=== PATIENT | male | born 1955 | race African-American/Black ===

== ENCOUNTER 2018-03-19 20:10 | Observation (INO) | payer OTHER ==
[2018-03-19 20:55] LABS: Absolute Lymphocytes (CBC) 2.5 K/uL (0.7-4.9); Absolute Monocytes 0.8 K/uL (0.1-1.3); Absolute Neutrophil 2.9 K/uL (1.8-8.0); Basophils % 0.6 % (0-1.3); Hematocrit 46.3 % (39.6-49.0); Lymphocytes % 39.5 % (15.3-44.8); MPV 9.1 fL (7.6-11.3); RBC Red Blood Cell Count 5.36 M/uL (4.33-5.43)
[2018-03-19 20:58] LABS: Protime INR 1.33
[2018-03-19] MEDS ORDERED: FUROSEMIDE 20 MG/ 2ML VIAL ONE (21:01)
[2018-03-19 21:14] LABS: Albumin 3.2 g/dL (3.4-5.0); Bilirubin Direct 0.3 mg/dL (0-0.2); Bilirubin Total 0.6 mg/dL (0.2-1.0); Magnesium 2.3 mg/dL (1.8-2.4); Protein, Total 6.5 g/dL (6.4-8.2); Troponin (Emerg Dept Use Only) 0.04 ng/mL (0.0-0.045)
--- NOTE | 2018-03-19 21:21 | RAD REPORT ---
EXAM DESCRIPTION: Cesilia Single View03/19/2018 8:39 pm CLINICAL HISTORY: Chest pain COMPARISON: 2016 FINDINGS: The left base is mildly hazy which could indicate a small pleural effusion. Lungs appear clear of acute infiltrate. Heart is mildly to moderately enlarged
[2018-03-19 21:26] LABS: Arterial Blood Carboxyhemoglob 1.2 % (0-1.5); Blood Gas Oxyhemoglobin 94.9 % (94-97); Blood O2 Saturation 96.9 % (92-98.5)
--- NOTE | 2018-03-19 21:43 | ER ---
Nurse's Notes [facility] Name: John Paul Chavarria Age: 63 yrs Sex: Male : 1955 Arrival Date: 03/19/2018 Time: 20:11 Bed 30 Private MD: Álvaro Palma H Diagnosis: Unspecified combined systolic (congestive) and diastolic (congestive) heart failure Presentation: 03/19 20:23 Presenting complaint: Patient states: BLE swelling and abdominal bloating for 1 week. aj Seen by Dr Palma on . Transition of care: patient was not received from another setting of care. Onset of symptoms was March 13, 2018. Risk Assessment: Do you want to hurt yourself or someone else? Patient reports no desire to harm self or others. Initial Sepsis Screen: Does the patient meet any 2 criteria? No. Patient's initial sepsis screen is negative. Does the patient have a suspected source of infection? No. Patient's initial sepsis screen is negative. Care prior to arrival: None. 20:23 Method Of Arrival: Ambulatory aj 20:23 Acuity: MACK 3 aj Triage Assessment: 20:26 General: Appears in no apparent distress. comfortable, Behavior is calm, cooperative, aj appropriate for age. Pain: Denies pain. Neuro: Level of Consciousness is awake, alert, obeys commands, Oriented to person, place, time, situation, Appropriate for age. Cardiovascular: Edema is 1+ to left ankle, left foot, right ankle and right foot. Respiratory: Airway is patent Respiratory effort is even, unlabored, Respiratory pattern is regular, symmetrical. Derm: Skin is intact, is healthy with good turgor, Skin is pink, warm \T\ dry. normal. Historical: - Allergies: 20:26 No Known Allergies; aj - Home Meds: 20:26 amlodipine 10 mg oral tab [Active]; furosemide 20 mg Oral tab 1 tab 2 times per day aj [Active]; potassium chloride 20 mEq/15 mL Oral liqd 15 mL once daily [Active]; - PMHx: 20:26 Hypertension; aj - PSHx: 20:26 None; aj - Immunization history:: Adult Immunizations up to date. - Social history:: Smoking status: Patient/guardian denies using tobacco. - Ebola Screening: : Patient negative for fever greater than or equal to 101.5 degrees Fahrenheit, and additional compatible Ebola Virus Disease symptoms Patient denies exposure to infectious person Patient denies travel to an Ebola-affected area in the 21 days before illness onset No symptoms or risks identified at this time. Screenin:55 Abuse screen: Denies threats or abuse. Denies injuries from another. Nutritional mg2 screening: No deficits noted. Tuberculosis screening: No symptoms or risk factors identified. Fall Risk IV access (20 points). Assessment: 20:30 General: Appears in no apparent distress. uncomfortable, well groomed, well developed, kr2 well nourished, Behavior is calm, cooperative, appropriate for age. Pain: Denies pain. Neuro: Level of Consciousness is awake, alert, obeys commands, Oriented to person, place, time, situation, Appropriate for age Hub Inventory Specialist are equal bilaterally Moves all extremities. Gait is steady. Cardiovascular: Patient's skin is warm and dry. Rhythm is sinus tachycardia. Cardiovascular: Edema is 1+ to left ankle and right ankle. Respiratory: Reports shortness of breath on exertion Airway is patent Respiratory effort is even, unlabored, Respiratory pattern is regular, symmetrical, the patient has mild shortness of breath. GI: Abdomen is flat, non-distended. : Denies burning with urination. EENT: Oral mucosa is moist. Derm: Skin is intact, is healthy with good turgor, Skin is pink, warm \T\ dry. Musculoskeletal: Circulation, motion, and sensation intact. 21:00 Reassessment: Patient given urinal. kr2 21:30 Reassessment: Patient appears in no apparent distress at this time. Patient and/or kr2 family updated on plan of care and expected duration. Pain level reassessed. Patient is alert, oriented x 3, equal unlabored respirations, skin warm/dry/pink. Patient denies pain at this time. 22:30 Reassessment: Patient appears in no apparent distress at this time. Patient and/or kr2 family updated on plan of care and expected duration. Pain level reassessed. Patient is alert, oriented x 3, equal unlabored respirations, skin warm/dry/pink. Patient denies pain at this time. 23:09 Reassessment: Patient appears in no apparent distress at this time. Patient and/or kr2 family updated on plan of care and expected duration. Pain level reassessed. Patient is alert, oriented x 3, equal unlabored respirations, skin warm/dry/pink. Patient states feeling better. 03/20 00:02 Reassessment: Patient appears in no apparent distress at this time. Patient and/or kr2 family updated on plan of care and expected duration. Pain level reassessed. Patient is alert, oriented x 3, equal unlabored respirations, skin warm/dry/pink. Patient denies pain at this time. 01:00 Reassessment: Patient appears in no apparent distress at this time. Patient and/or kr2 family updated on plan of care and expected duration. Pain level reassessed. Patient is alert, oriented x 3, equal unlabored respirations, skin warm/dry/pink. Patient denies pain at this time. Patient states feeling better. Vital Signs: 03/19 20:26 BP 176 / 116; Pulse 108; Resp 20; Temp 97.6; Pulse Ox 100% on R/A; Weight 106.59 kg; aj Height 6 ft. 0 in. (182.88 cm); 21:45 BP 166 / 117; Pulse 93; Resp 19; Pulse Ox 100% on R/A; kr2 23:10 BP 150 / 96; Pulse 91; Resp 22; Pulse Ox 96% on R/A; kr2 03/20 00:02 BP 148 / 98; Pulse 86; Resp 18; Pulse Ox 98% on R/A; kr2 01:00 BP 154 / 90; Pulse 88; Resp 18; Pulse Ox 98% on R/A; kr2 03/19 20:26 Body Mass Index 31.87 (106.59 kg, 182.88 cm) aj 03/19 21:45 Provider aware of vital signs kr2 ED Course: 20:11 Patient arrived in ED. al2 20:12 Álvaro Palma DO is Private Physician. al2 20:24 Triage completed. aj 20:26 Arm band placed on left wrist. Patient placed in an exam room. aj 20:28 Andria Rowan FNP-C is [facility]. snw 20:28 Matt Raphael MD is Attending Physician. snw 20:30 Patient has correct armband on for positive identification. Placed in gown. Bed in low kr2 position. Call light in reach. Side rails up X2. school lunch monitor on. Pulse ox on. NIBP on. Door closed. Warm blanket given. Head of bed elevated. 20:36 X-ray completed. Portable x-ray completed in exam room. Patient tolerated procedure sg4 well. 20:39 XRAY Chest (1 view) In Process Unspecified. EDMS 20:40 Rosemarie Longoria, RN is Primary Nurse. kr2 20:54 No provider procedures requiring assistance completed. Inserted saline lock: 20 gauge mg2 in right antecubital area, using aseptic technique. Blood collected. by JONATHAN Houston. 21:42 Lindsey Wing MD is Hospitalizing Provider. snw 03/20 01:09 Patient admitted, IV remains in place. kr2 Administered Medications: 03/19 20:54 Drug: Lasix 20 mg Route: IVP; Site: right antecubital; mg2 21:48 Follow up: Response: No adverse reaction kr2 21:51 Drug: Nitro-Bid Ointment 2 % 1 inches Route: Transdermal; Site: anterior chest wall; kr2 23:18 Follow up: Response: No adverse reaction; Blood pressure is lowered kr2 Outcome: 21:42 Decision to Hospitalize by Provider. snw 03/20 01:09 Admitted to ICU accompanied by nurse, via stretcher, room 6, on monitor, with chart, kr2 Report called to Sonal Condition: stable Instructed on the need for admit, Demonstrated understanding of instructions. 01:10 Patient left the ED. kr2 Signatures: Dispatcher [employer] EDMS Diane Gillis RN RN aj Therrien, Shelly, PIPE MANUFACTURE SUPERVISOR-C PIPE MANUFACTURE SUPERVISOR-Csnw Rosemarie Longoria RN RN kr2 Gail Ny Michele, RN RN mg2 Sarai Saldaña sg4 Corrections: (The following items were deleted from the chart) 03/19 21:56 21:54 BP 166 / 117; Pulse 93bpm; Resp 19bpm; Pulse Ox 100% RA; kr2 kr2 21:57 20:45 BP 166 / 117; Pulse 93bpm; Resp 19bpm; Pulse Ox 100% RA; Provider aware of vital kr2 signs; kr2 23:17 23:10 Pulse 106bpm; Resp 22bpm; Pulse Ox 96% RA; kr2 kr2 23:18 23:10 BP 150 / 96; Pulse 106bpm; Resp 22bpm; Pulse Ox 96% RA; kr2 kr2
--- NOTE | 2018-03-19 21:43 | EDPHYS ---
Physician Documentation [facility] Name: John Paul Chavarria Age: 63 yrs Sex: Male : 1955 Arrival Date: 03/19/2018 Time: 20:11 Bed 30 Private MD: Álvaro Palma H ED Physician Matt Raphael HPI: 03/19 20:51 This 63 yrs old Black Male presents to ER via Ambulatory with complaints of Flank Pain, snw WATER RENTENTION. 20:52 The patient has shortness of breath with light activity. Onset: The symptoms/episode snw began/occurred 1 week(s) ago, and became persistent. Duration: The symptoms are continuous, and are steadily getting worse. Associated signs and symptoms: Pertinent positives: non-productive cough. Severity of symptoms: At their worst the symptoms were moderate in the emergency department the symptoms are unchanged. The patient has not experienced similar symptoms in the past. The patient has been recently seen by a physician: Dr. Palma 5 day(s) ago, with similar presenting complaints, was given lab req and orders for EKG, echo. Historical: - Allergies: 20:26 No Known Allergies; aj - Home Meds: 20:26 amlodipine 10 mg oral tab [Active]; furosemide 20 mg Oral tab 1 tab 2 times per day aj [Active]; potassium chloride 20 mEq/15 mL Oral liqd 15 mL once daily [Active]; - PMHx: 20:26 Hypertension; aj - PSHx: 20:26 None; aj - Immunization history:: Adult Immunizations up to date. - Social history:: Smoking status: Patient/guardian denies using tobacco. - Ebola Screening: : Patient negative for fever greater than or equal to 101.5 degrees Fahrenheit, and additional compatible Ebola Virus Disease symptoms Patient denies exposure to infectious person Patient denies travel to an Ebola-affected area in the 21 days before illness onset No symptoms or risks identified at this time. ROS: 20:51 Constitutional: Negative for fever, chills, and weight loss, Eyes: Negative for injury, snw pain, redness, and discharge, ENT: Negative for injury, pain, and discharge, Neck: Negative for injury, pain, and swelling. 20:51 Back: Negative for injury and pain, : Negative for injury, bleeding, discharge, and swelling, MS/Extremity: Negative for injury and deformity, Skin: Negative for injury, rash, and discoloration, Neuro: Negative for headache, weakness, numbness, tingling, and seizure, Psych: Negative for depression, anxiety, suicide ideation, homicidal ideation, and hallucinations. 20:51 Cardiovascular: Positive for edema, orthopnea, paroxysmal nocturnal dyspnea. 20:51 Respiratory: Positive for cough, shortness of breath. 20:51 Abdomen/GI: Positive for abdominal distension. Exam: 20:46 Constitutional: This is a well developed, well nourished patient who is awake, alert, snw and in no acute distress. Head/Face: Normocephalic, atraumatic. Eyes: Pupils equal round and reactive to light, extra-ocular motions intact. Lids and lashes normal. Conjunctiva and sclera are non-icteric and not injected. Cornea within normal limits. Periorbital areas with no swelling, redness, or edema. ENT: Nares patent. No nasal discharge, no septal abnormalities noted. Tympanic membranes are normal and external auditory canals are clear. Oropharynx with no redness, swelling, or masses, exudates, or evidence of obstruction, uvula midline. Mucous membranes moist. Neck: Trachea midline, no thyromegaly or masses palpated, and no cervical lymphadenopathy. Supple, full range of motion without nuchal rigidity, or vertebral point tenderness. No Meningismus. Chest/axilla: Normal chest wall appearance and motion. Nontender with no deformity. No lesions are appreciated. Back: No spinal tenderness. No costovertebral tenderness. Full range of motion. Neuro: Awake and alert, GCS 15, oriented to person, place, time, and situation. Cranial nerves II-XII grossly intact. Motor strength 5/5 in all extremities. Sensory grossly intact. Cerebellar exam normal. Normal gait. Psych: Awake, alert, with orientation to person, place and time. Behavior, mood, and affect are within normal limits. 20:46 Cardiovascular: Rate: tachycardic, Rhythm: regular, Heart sounds: normal, Edema: 3+ edema to level of waist, left ankle, left foot, right ankle and right foot. 20:46 Respiratory: mild respiratory distress is noted, Respirations: labored breathing, shallow respirations, Breath sounds: + upper airway congestion. cough. 20:46 Abdomen/GI: Inspection: distension, that is moderate, Bowel sounds: normal, in all quadrants, Palpation: mild abdominal tenderness, in all quadrants. Vital Signs: 20:26 BP 176 / 116; Pulse 108; Resp 20; Temp 97.6; Pulse Ox 100% on R/A; Weight 106.59 kg; aj Height 6 ft. 0 in. (182.88 cm); 21:45 BP 166 / 117; Pulse 93; Resp 19; Pulse Ox 100% on R/A; kr2 23:10 BP 150 / 96; Pulse 91; Resp 22; Pulse Ox 96% on R/A; kr2 03/20 00:02 BP 148 / 98; Pulse 86; Resp 18; Pulse Ox 98% on R/A; kr2 01:00 BP 154 / 90; Pulse 88; Resp 18; Pulse Ox 98% on R/A; kr2 03/19 20:26 Body Mass Index 31.87 (106.59 kg, 182.88 cm) 03/19 21:45 Provider aware of vital signs kr2 MDM: 20:31 Patient medically screened. snw 21:41 Data reviewed: vital signs, nurses notes, lab test result(s), EKG, radiologic studies. snw Counseling: I had a detailed discussion with the patient and/or guardian regarding: the historical points, exam findings, and any diagnostic results supporting the discharge/admit diagnosis, the presence of at least one elevated blood pressure reading (>120/80) during this emergency department visit, lab results, radiology results, the need for further work-up and treatment in the hospital. Physician consultation: Lindsey Wing MD was called at 21:42, was contacted at 21:42, regarding admission, to the telemetry unit. 03/19 20:30 Order name: Basic Metabolic Panel; Complete Time: 21:30 snw 03/19 20:30 Order name: CBC with Diff; Complete Time: 21:03 snw 03/19 20:30 Order name: LFT's; Complete Time: 21:30 snw 03/19 20:30 Order name: Magnesium; Complete Time: 21:30 snw 03/19 20:30 Order name: NT PRO-BNP; Complete Time: 21:30 snw 03/19 20:30 Order name: PT-INR; Complete Time: 21:10 snw 03/19 20:30 Order name: Troponin (emerg Dept Use Only); Complete Time: 21:30 snw 03/19 20:30 Order name: XRAY Chest (1 view); Complete Time: 21:30 snw 03/19 20:30 Order name: EKG; Complete Time: 20:31 snw 03/19 20:30 Order name: Cardiac monitoring; Complete Time: 20:54 snw 03/19 20:30 Order name: EKG - Nurse/Tech; Complete Time: 20:54 snw 03/19 20:34 Order name: ABG; Complete Time: 21:30 snw 03/19 20:30 Order name: IV Saline Lock; Complete Time: 20:54 snw 03/19 20:30 Order name: Labs collected and sent; Complete Time: 20:54 snw 03/19 20:30 Order name: O2 Per Protocol; Complete Time: 20:54 snw 03/19 20:30 Order name: O2 Sat Monitoring; Complete Time: 20:54 snw Administered Medications: 20:54 Drug: Lasix 20 mg Route: IVP; Site: right antecubital; mg2 21:48 Follow up: Response: No adverse reaction kr2 21:51 Drug: Nitro-Bid Ointment 2 % 1 inches Route: Transdermal; Site: anterior chest wall; kr2 23:18 Follow up: Response: No adverse reaction; Blood pressure is lowered kr2 Disposition: 03/20 02:12 Co-signature as Attending Physician, Matt Raphael MD. pk Disposition: 03/19/18 21:42 Hospitalization ordered by Lindsey Wing for Observation. Preliminary diagnosis is Unspecified combined systolic (congestive) and diastolic (congestive) heart failure. - Bed requested for Intensive Care Unit. - Status is Observation. kr2 - Condition is Stable. - Problem is new. - Symptoms are unchanged. UTI on Admission? No Signatures: Dispatcher [employer] EDAlissa Arellano RN RN kl Myers, Amanda, RN RN aj Lam, Pin, MD MD pkl Andria Rowan, OPENER TENDER-C OPENER TENDER-Csnw Rosemarie Longoria RN RN kr2 Selvin Zacarias RN RN mg2 Corrections: (The following items were deleted from the chart) 03/19 23:29 21:42 Hospitalization Ordered by Lindsey Wing MD for Observation. Preliminary kl diagnosis is Unspecified combined systolic (congestive) and diastolic (congestive) heart failure. Bed requested for Telemetry/MedSurg (observation). Status is Observation. Condition is Stable. Problem is new. Symptoms are unchanged. UTI on Admission? No. snw 03/20 01:10 03/19 23:29 03/19/2018 21:42 Hospitalization Ordered by Lindsey Wing MD for kr2 Observation. Preliminary diagnosis is Unspecified combined systolic (congestive) and diastolic (congestive) heart failure. Bed requested for Intensive Care Unit. Status is Observation. Condition is Stable. Problem is new. Symptoms are unchanged. UTI on Admission? No. kl
[2018-03-19] MEDS ORDERED: NITROGLYCERIN 1 GM PKT TD ONE (21:59)
--- NOTE | 2018-03-19 23:20 | P.HP ---
Certification for Inpatient Patient admitted to: Observation With expected LOS: <2 Midnights Practitioner: I am a practitioner with admitting privileges, knowledge of patient current condition, hospital course, and medical plan of care. Services: Services provided to patient in accordance with Admission requirements found in Title 42 Section 412.3 of the Code of Federal Regulations Patient History Date of Service: 03/19/18 Reason for admission: CHF exacerbation History of Present Illness: Mr Chavarria is a 63 years old male with history of HTN. He start about 1 week ago with progressive SOB and bilateral lower extremity swelling. He is also complaining of abdominal bloating. He denied chest pain. about 4 days ago, went to see his PCP, he was started on Lasix and adjusted BP medication. He was also scheduled to have an ECHO as outpatient. However, the patient today was feeling worse and came to ED for evaluation. At arrival he was dyspneic, but O2 sat was 100% on RA. BP elevated 177/6/116, tachycardic 108 bpm. Lab work remarkable for normal WBC count, elevated creatinine 1.5 and ProBNP, CXR consistent with venous congestion, and enlarged heart. EKG SR with St depression in lateral leads, possible overload. Home medications list reviewed: Yes - Past Medical/Surgical History -: HTN Past Surgical History: Reviewed- Non-Contributory - Family History Family History: Reviewed- Non-Contributory - Social History Smoking Status: Never smoker Alcohol use: No CD- Drugs: No Place of Residence: Home Review of Systems 10-point ROS is otherwise unremarkable Physical Examination - Physical Exam General: Alert, In no apparent distress HEENT: Atraumatic, PERRLA, Mucous membr. moist/pink, EOMI, Sclerae nonicteric Neck: Supple, 2+ carotid pulse no bruit, No LAD, Without JVD or thyroid abnormality Respiratory: Normal air movement, Crackles/rales (scattered bibasilar rales) Cardiovascular: Regular rate/rhythm, Normal S1 S2 Gastrointestinal: Normal bowel sounds, No tenderness Musculoskeletal: No tenderness, Swelling (bilateral LE 1+) Integumentary: No rashes Neurological: Normal gait, Normal speech, Normal strength at 5/5 x4 extr, Normal tone, Normal affect Lymphatics: No axilla or inguinal lymphadenopathy - Studies Laboratory Data (last 24 hrs) 03/19/18 20:45: PT 15.7 H, INR 1.33 03/19/18 20:45: WBC 6.4, Hgb 14.8, Hct 46.3, Plt Count 137 L 03/19/18 20:45: Sodium 143, Potassium 4.0, BUN 16, Creatinine 1.56 H, Glucose 104, Magnesium 2.3, Total Bilirubin 0.6, AST 32, ALT 57, Alkaline Phosphatase 134 H Assessment and Plan - Problems (Diagnosis) (1) Congestive heart failure Current Visit: Yes Status: Acute Qualifiers: Heart failure type: unspecified Heart failure chronicity: acute Qualified Code(s): I50.9 - Heart failure, unspecified (2) HTN (hypertension) Current Visit: Yes Status: Acute Qualifiers: Hypertension type: essential hypertension Qualified Code(s): I10 - Essential (primary) hypertension (3) Lower extremity edema Current Visit: Yes Status: Acute - Plan will admit the patient due to CHF exacerbation. Unknoun EF. Will order ECHO, IV lasix, consult cardiology team. - Advance Directives Does patient have a Living Will: No Does patient have a Durable POA for Healthcare: No - Code Status/Comfort Care Code Status Assessed: Yes Code Status: Full Code
[2018-03-20] MEDS ORDERED: ONDANSETRON 4 MG/2 ML VIAL IV PRN (00:32)
[2018-03-20] MEDS ORDERED: ACETAMINOPHEN 500 MG TAB PO PRN (00:32)
[2018-03-20 05:07] LABS: Absolute Lymphocytes (CBC) 2.2 K/uL (0.7-4.9); Absolute Monocytes 0.7 K/uL (0.1-1.3); Absolute Neutrophil 3.2 K/uL (1.8-8.0); Basophils % 0.6 % (0-1.3); Eosinophils % 1.9 % (0-4.4); Hematocrit 45.1 % (39.6-49.0); Lymphocytes % 34.7 % (15.3-44.8); MPV 9.7 fL (7.6-11.3); Monocytes % 11.8 % (3.3-12.3); RBC Red Blood Cell Count 5.23 M/uL (4.33-5.43)
[2018-03-20] MEDS ORDERED: FUROSEMIDE 40 MG/4 ML VIAL IV SCH (09:00)
[2018-03-20] MEDS ORDERED: ENOXAPARIN 40 MG/0.4 ML SQ SCH (09:00)
[2018-03-20] MEDS ORDERED: AMLODIPINE 10 MG TAB PO SCH (10:00)
--- NOTE | 2018-03-20 10:03 | EKG ---
Test Date: 2018-03-19 Test Time: 20:53:06 Sheet Rock Finisher: ANDRA MEASUREMENT RESULTS: Intervals: Rate: 96 SC: 190 QRSD: 94 QT: 358 QTc: 452 [place]: P: 65 SC: 190 QRS: 20 T: 180 INTERPRETIVE STATEMENTS: Normal sinus rhythm Possible Left atrial enlargement Nonspecific T wave abnormality Abnormal ECG Compared to ECG 08/05/2015 08:52:26 T-wave abnormality now present Left ventricular hypertrophy no longer present Electronically Signed On 03-20-18 09:54:32 HANDLE BAR ASSEMBLER by Jesus Alberto Rosenbaum
[2018-03-20] MEDS: LOSARTAN/HCTZ 50-12.5 PO SCH ×2 (11:01→13:12)
--- NOTE | 2018-03-20 14:08 | P.DS ---
Admission Date: 03/19/18 Discharge Date: 03/20/18 Disposition: ROUTINE DISCHARGE Discharge Condition: GOOD Reason for Admission: CHF exacerbation Consultations: Cardiology Brief History of Present Illness: Mr Chavarria is a 63 years old male with history of HTN. He start about 1 week ago with progressive SOB and bilateral lower extremity swelling. He is also complaining of abdominal bloating. He denied chest pain. about 4 days ago, went to see his PCP, he was started on Lasix and adjusted BP medication. He was also scheduled to have an ECHO as outpatient. However, the patient today was feeling worse and came to ED for evaluation. At arrival he was dyspneic, but O2 sat was 100% on RA. BP elevated 177/116, tachycardic 108 bpm. Lab work remarkable for normal WBC count, elevated creatinine 1.5 and ProBNP, CXR consistent with venous congestion, and enlarged heart. EKG SR with St depression in lateral leads, possible overload. Hospital Course: Overall during the hospital stay patient remained stable Patient was initially admitted to the hospital for volume overload most likely secondary to CHF exacerbation. Patient was given IV Lasix here in the hospital had adequate diuresis and was feeling much better. Patient's blood pressure stabilized after addition of heights are an IV Lasix. Patient was able to breathe properly as well after the Lasix. Patient was seen here by cardiology who recommended the patient be sent home on hives are. Patient can have outpatient echocardiogram done per cardiology. Patient then was discharged home under stable condition when he was feeling better. Patient agreed with follow up with cardiology in about 1-2 days and thus was discharged home under stable condition. Vital Signs/Physical Exam: Temp Pulse Resp BP Pulse Ox 98.7 F 101 H 18 163/93 H 98 03/20/18 12:00 03/20/18 13:12 03/20/18 13:00 03/20/18 13:12 03/20/18 13:00 General: Alert, In no apparent distress HEENT: Atraumatic, PERRLA, EOMI Neck: Supple, JVD not distended Respiratory: Clear to auscultation bilaterally, Normal air movement Cardiovascular: Regular rate/rhythm, Normal S1 S2 Gastrointestinal: Normal bowel sounds, No tenderness Musculoskeletal: No tenderness Integumentary: No rashes Neurological: Normal speech, Normal tone, Normal affect Lymphatics: No axilla or inguinal lymphadenopathy Laboratory Data at Discharge: WBC 6.4 K/uL (4.3-10.9) 03/20/18 04:34 Hgb 14.6 g/dL (13.6-17.9) 03/20/18 04:34 Hct 45.1 % (39.6-49.0) 03/20/18 04:34 Plt Count 125 K/uL (152-406) L 03/20/18 04:34 PT 15.7 SECONDS (9.5-12.5) H 03/19/18 20:45 INR 1.33 03/19/18 20:45 Sodium 142 mmol/L (136-145) 03/20/18 04:34 Potassium 4.0 mmol/L (3.5-5.1) 03/20/18 04:34 BUN 14 mg/dL (7-18) 03/20/18 04:34 Creatinine 1.38 mg/dL (0.55-1.3) H 03/20/18 04:34 Glucose 87 mg/dL (74-106) 03/20/18 04:34 Magnesium 2.3 mg/dL (1.8-2.4) 03/19/18 20:45 Total Bilirubin 0.6 mg/dL (0.2-1.0) 03/19/18 20:45 AST 32 U/L (15-37) 03/19/18 20:45 ALT 57 U/L (12-78) 03/19/18 20:45 Alkaline Phosphatase 134 U/L (45-117) H 03/19/18 20:45 Home Medications: Amlodipine [Norvasc*] 10 mg PO DAILY 03/20/18 Furosemide [Lasix*] 20 mg PO BIDL 03/20/18 Losartan/Hydrochlorothiazide [Hyzaar 50-12.5 Tablet] 1 each PO DAILY #30 tablet 03/20/18 Potassium Chloride 20 meq PO DAILY 03/20/18 New Medications: Losartan/Hydrochlorothiazide [Hyzaar 50-12.5 Tablet] 1 each PO DAILY #30 tablet Patient Discharge Instructions: Please f.u with PCP and Robi in 1 to 2 week post discharge. New medication. Hyzaar 1 tab daily. Continue to take. Amlodipine 10mg daily. Lasix 20mg BID Diet: Regular Activity: Ad clint Followup: Jesus Alberto Rosenbaum MD [ACTIVE - CAN ADMIT] - 1 Week
[2018-03-21] MEDS ORDERED: AMLODIPINE 10 MG TAB PO SCH (09:00)
--- NOTE | 2018-03-21 20:51 | CON ---
Date of Consultation: 03/20/2018 Reason For Consultation: Congestive heart failure. History Of Present Illness: Mr. Chavarria is 63, has a history of hypertension, came in with flank pain , was noted to be in CHF by x-ray with small pleural effusion and cardiomegaly. His BNP was 7280. H is creatinine is 1.56. Otherwise, his laboratory evaluation were negative. His EKG was nonspecific. He denied any chest pain, nausea, vomiting, diaphoresis. Has denied any PND, but has had orthopnea and pedal edema. Denied any syncope or palpitation. Past Medical History: Includes hypertension. Allergies: NONE. Review of Systems: Negative. Social History: Negative for tobacco, drug, or alcohol. Family History: Positive for hypertension and coronary artery disease. Medications At Home: Include Norvasc, Lasix, and potassium. Physical Examination: General: Mr. Chavarria appears his stated age. He was not in acute distress. He has improved dramatic ally after IV Lasix. Remains hypertensive in sinus rhythm. HEENT: Negative. Neck: Supple without any bruit, lymphadenopathy, or JVD. Chest: Revealed rales both bases. Cardiac: Revealed a regular rhythm and rate with an S4 gallop and a aortic sclerosis murmur but no r ubs. Abdomen: Benign. Extremities: Revealed no clubbing or cyanosis. He had trace edema. Diagnostic Data: As stated earlier. Impression And Plan: 1.Acute on chronic diastolic congestive heart failure. The patient needs to be diuresed gently. I think we need his blood pressure better controlled. I think he needs to continue his Norvasc 10 mg d aily, but I would like to add Hyzaar to his regimen. The patient also needs to have an outpatient Le irma to make sure he does not have coronary artery disease causing his symptoms. 2.Renal insufficiency stage 3. We will follow his creatinine, especially after diuresis. NB/MODL Voice ID: [id number] Report ID: [id number]
== END 2018-03-20 13:10 | disposition home or self-care (01) ==
LOC: ER 20:10 → ERHOLD 21:42 → 3RD-ICU 03-20 00:39
PROVIDERS: ADMIT Internal Medicine; ATTEND Internal Medicine
DX: I11.0 Hypertensive heart disease with heart failure (principal); I50.33 Acute on chronic diastolic (congestive) heart failure
CPT/HCPCS: 36415; 71045; 80048; 80076; 82805; 83735; 83880; 84484; 85025; 85610; 93005; 96374; 99285; G0378; J1650; J1940

== ENCOUNTER 2019-05-17 22:34 | Observation (INO) | payer OTHER ==
[2019-05-17 23:43] LABS: Absolute Lymphocytes (CBC) 1.6 K/uL (0.7-4.9); Basophils % 0.6 % (0-1.3); Hematocrit 45.1 % (39.6-49.0); Lymphocytes % 26.6 % (15.3-44.8); MPV 10.3 fL (7.6-11.3); RBC Red Blood Cell Count 5.26 M/uL (4.33-5.43)
[2019-05-17 23:45] LABS: Protime INR 1.25
--- NOTE | 2019-05-18 00:17 | ER ---
Nurse's Notes [facility] Name: John Paul Chavarria Age: 64 yrs Sex: Male : 1955 Arrival Date: 05/17/2019 Time: 22:38 Bed 4 Private MD: Diagnosis: Unspecified combined systolic (congestive) and diastolic (congestive) heart failure;Cardiomegaly;Orthopnea Presentation: 05/17 22:41 Presenting complaint: Patient states: Pt from [facility] and supposed to be a direct admit ca1 but pt refused to be transferred via ambulance. Pt c/o of SOB at rest and swelling on lower extremities for months but worst in the past few days. Transition of care: [facility] ER. Onset of symptoms was May 17, 2019. Risk Assessment: Do you want to hurt yourself or someone else? Patient reports no desire to harm self or others. Initial Sepsis Screen: Does the patient meet any 2 criteria? No. Patient's initial sepsis screen is negative. Does the patient have a suspected source of infection? No. Patient's initial sepsis screen is negative. Care prior to arrival: Lasix. 22:41 Method Of Arrival: Wheelchair ca1 22:41 Acuity: MACK 3 ca1 Historical: - Allergies: 22:48 No Known Allergies; ca1 - Home Meds: 22:48 None [Active]; ca1 - PMHx: 22:48 Hypertension; Arthritis; Kidney Disease; CHF; ca1 - PSHx: 22:48 None; ca1 - Immunization history:: Adult Immunizations up to date, Pneumococcal vaccine is not up to date, Flu vaccine is up to date. - Coronavirus screen:: The patient has NOT traveled to [place] in the past 14 days. The patient has NOT had contact with known/suspected case of Coronavirus?. - Social history:: Smoking status: Patient denies any tobacco usage or history of. - Ebola Screening: : Patient negative for fever greater than or equal to 101.5 degrees Fahrenheit, and additional compatible Ebola Virus Disease symptoms Patient denies exposure to infectious person Patient denies travel to an Ebola-affected area in the 21 days before illness onset No symptoms or risks identified at this time. Screenin:19 Abuse screen: Denies threats or abuse. Denies injuries from another. Nutritional lp1 screening: No deficits noted. Tuberculosis screening: No symptoms or risk factors identified. Fall Risk None identified. Assessment: 23:17 General: Appears in no apparent distress. Behavior is anxious, crying. Pain: Complains lp1 of pain in chest Also complains of shortness of breath. Neuro: Level of Consciousness is awake, alert, obeys commands, Oriented to person, place, time, situation. Cardiovascular: Patient's skin is warm and dry. Edema is 1+ to left ankle and right ankle Rhythm is sinus rhythm with unifocal PVCs. Respiratory: Reports shortness of breath at rest Airway is patent Respiratory effort is even, unlabored, Respiratory pattern is regular, Breath sounds are diminished in left posterior lower lobe and right posterior lower lobe Onset: The symptoms/episode began/occurred gradually, the patient has mild shortness of breath. GI: Abdomen is non-distended. : No signs and/or symptoms were reported regarding the genitourinary system. EENT: No signs and/or symptoms were reported regarding the EENT system. Derm: Skin is intact, Skin is dry, Skin is normal. Musculoskeletal: No deficits noted. 05/18 00:00 Reassessment: Patient appears in no apparent distress at this time. Patient and/or lp1 family updated on plan of care and expected duration. Pain level reassessed. Patient aware of pending admission. 00:45 Reassessment: Hospitalist at bedside to discuss plan of care with patient. lp1 01:56 Reassessment: Patient appears in no apparent distress at this time. Patient is alert, lp1 oriented x 3, equal unlabored respirations, skin warm/dry/pink. Vital Signs: 05/17 22:48 BP 153 / 87; Pulse 94; Resp 19 S; Temp 98.8(O); Pulse Ox 100% on R/A; Weight 99.79 kg ca1 (R); Height 6 ft. (182.88 cm) (R); Pain 0/10; 23:19 BP 169 / 106; Pulse 97; Resp 15; Pulse Ox 100% on R/A; lp1 23:45 BP 152 / 78; Pulse 87; Resp 18; Pulse Ox 99% on R/A; lp1 05/18 00:00 BP 153 / 81; Pulse 91; Resp 13; Pulse Ox 100% on R/A; lp1 01:00 BP 153 / 80; Pulse 82; Resp 17; Pulse Ox 100% on R/A; lp1 01:57 BP 154 / 86; Pulse 89; Resp 19; Pulse Ox 100% on R/A; lp1 05/17 22:48 Body Mass Index 29.84 (99.79 kg, 182.88 cm) ca1 ED Course: 02 22:38 Patient arrived in ED. jg7 22:46 Triage completed. ca1 22:48 Arm band placed on right wrist. ca1 22:51 Robert Mauro MD is Attending Physician. endy 22:56 Kulwant Carmen, RN is Primary Nurse. rv 23:17 Aida Moore, RN is Primary Nurse. lp1 23:19 Patient has correct armband on for positive identification. Placed in gown. Bed in low lp1 position. potline monitor on. Pulse ox on. NIBP on. 23:33 Initial lab(s) drawn, by me, sent to lab. Inserted saline lock: 20 gauge in right rv antecubital area, using aseptic technique. Blood collected. 05/18 00:14 Issa Lopez is Hospitalizing Provider. endy 00:15 No provider procedures requiring assistance completed. Patient admitted, IV remains in lp1 place. Administered Medications: No medications were administered Output: 00:12 Urine: 450ml (Voided); Total: 450ml. lp1 02:13 Urine: 200ml (Voided); Total: 650ml. lp1 Outcome: 00:15 Decision to Hospitalize by Provider. endy 00:15 Condition: stable lp1 00:15 Instructed on the need for admit. 01:55 Admitted to [facility] via wheelchair, room 405, with chart, Report called to JONATHAN Park lp1 02:13 Patient left the ED. lp1 Signatures: Robert Mauro MD MD cha Pena, Laura, JONATHAN RN lp1 Kulwant Carmen RN RN rv Roxana Schultz RN RN ca1 Joanie Melara jg7 Corrections: (The following items were deleted from the chart) 05/17 23:02 22:41 Transition of care: patient was not received from another setting of care. ca1 ca1 23:19 23:17 Respiratory: Airway is patent Respiratory effort is even, unlabored, Respiratory lp1 pattern is regular, Breath sounds are diminished in left posterior lower lobe and right posterior lower lobe lp1 23:19 23:17 Respiratory: Airway is patent Respiratory effort is even, unlabored, Respiratory lp1 pattern is regular, Breath sounds are diminished in left posterior lower lobe and right posterior lower lobe Onset: The symptoms/episode began/occurred gradually, the patient has mild shortness of breath lp1
--- NOTE | 2019-05-18 00:18 | EDPHYS ---
Physician Documentation [facility] Name: John Paul Chavarria Age: 64 yrs Sex: Male : 1955 Arrival Date: 05/17/2019 Time: 22:38 Bed 4 Private MD: ED Physician Robert Mauro HPI: 05/18 00:10 This 64 yrs old Black Male presents to ER via Wheelchair with complaints of Breathing endy Difficulty, Feet Swelling. 00:10 The patient has shortness of breath at rest, with light activity. Onset: The endy symptoms/episode began/occurred 1 day(s) ago. Duration: The symptoms are continuous, and are steadily getting worse. The patient's shortness of breath is aggravated by light activity, supine position. Associated signs and symptoms: Pertinent positives: non-productive cough, dizziness. Severity of symptoms: At their worst the symptoms were mild moderate in the emergency department the symptoms have resolved. The patient has experienced similar episodes in the past, a few times. Historical: - Allergies: 05/17 22:48 No Known Allergies; ca1 - Home Meds: 22:48 None [Active]; ca1 - PMHx: 22:48 Hypertension; Arthritis; Kidney Disease; CHF; ca1 - PSHx: 22:48 None; ca1 - Immunization history:: Adult Immunizations up to date, Pneumococcal vaccine is not up to date, Flu vaccine is up to date. - Coronavirus screen:: The patient has NOT traveled to [place] in the past 14 days. The patient has NOT had contact with known/suspected case of Coronavirus?. - Social history:: Smoking status: Patient denies any tobacco usage or history of. - Ebola Screening: : Patient negative for fever greater than or equal to 101.5 degrees Fahrenheit, and additional compatible Ebola Virus Disease symptoms Patient denies exposure to infectious person Patient denies travel to an Ebola-affected area in the 21 days before illness onset No symptoms or risks identified at this time. ROS: 05/18 00:11 Constitutional: Negative for fever, chills, and weight loss, Eyes: Negative for injury, endy pain, redness, and discharge, ENT: Negative for injury, pain, and discharge, Neck: Negative for injury, pain, and swelling, Cardiovascular: Negative for chest pain, palpitations, and edema, Abdomen/GI: Negative for abdominal pain, nausea, vomiting, diarrhea, and constipation, Back: Negative for injury and pain, : Negative for injury, bleeding, discharge, and swelling, Skin: Negative for injury, rash, and discoloration, Neuro: Negative for headache, weakness, numbness, tingling, and seizure, Psych: Negative for depression, anxiety, suicide ideation, homicidal ideation, and hallucinations, Allergy/Immunology: Negative for hives, rash, and allergies, Endocrine: Negative for neck swelling, polydipsia, polyuria, polyphagia, and marked weight changes, Hematologic/Lymphatic: Negative for swollen nodes, abnormal bleeding, and unusual bruising. Respiratory: Positive for dyspnea on exertion, orthopnea, shortness of breath, Negative for hemoptysis, wheezing. MS/extremity: Positive for swelling, of the right leg and left leg. Exam: 00:12 Constitutional: This is a well developed, well nourished patient who is awake, alert, endy and in no acute distress. Head/Face: Normocephalic, atraumatic. Eyes: Pupils equal round and reactive to light, extra-ocular motions intact. Lids and lashes normal. Conjunctiva and sclera are non-icteric and not injected. Cornea within normal limits. Periorbital areas with no swelling, redness, or edema. ENT: Nares patent. No nasal discharge, no septal abnormalities noted. Tympanic membranes are normal and external auditory canals are clear. Oropharynx with no redness, swelling, or masses, exudates, or evidence of obstruction, uvula midline. Mucous membranes moist. Neck: Trachea midline, no thyromegaly or masses palpated, and no cervical lymphadenopathy. Supple, full range of motion without nuchal rigidity, or vertebral point tenderness. No Meningismus. Chest/axilla: Normal chest wall appearance and motion. Nontender with no deformity. No lesions are appreciated. Respiratory: Lungs have equal breath sounds bilaterally, clear to auscultation and percussion. No rales, rhonchi or wheezes noted. No increased work of breathing, no retractions or nasal flaring. Abdomen/GI: Soft, non-tender, with normal bowel sounds. No distension or tympany. No guarding or rebound. No evidence of tenderness throughout. Back: No spinal tenderness. No costovertebral tenderness. Full range of motion. Male : Normal genitalia with no discharge or lesions. Skin: Warm, dry with normal turgor. Normal color with no rashes, no lesions, and no evidence of cellulitis. Neuro: Awake and alert, GCS 15, oriented to person, place, time, and situation. Cranial nerves II-XII grossly intact. Motor strength 5/5 in all extremities. Sensory grossly intact. Cerebellar exam normal. Normal gait. Psych: Awake, alert, with orientation to person, place and time. Behavior, mood, and affect are within normal limits. 00:12 Cardiovascular: Rate: tachycardic, Rhythm: regular, Pulses: Pulses are 3+ in bilateral radial, brachial, femoral, popliteal, posterior tibial and and dorsalis pedis arteries.. Heart sounds: normal, Edema: 2+ edema to level of left midcalf, left ankle, left foot, right midcalf, right ankle and right foot, JVD: is noted bilaterally, to 1 cm. Vital Signs: 05/17 22:48 BP 153 / 87; Pulse 94; Resp 19 S; Temp 98.8(O); Pulse Ox 100% on R/A; Weight 99.79 kg ca1 (R); Height 6 ft. (182.88 cm) (R); Pain 0/10; 23:19 BP 169 / 106; Pulse 97; Resp 15; Pulse Ox 100% on R/A; lp1 23:45 BP 152 / 78; Pulse 87; Resp 18; Pulse Ox 99% on R/A; lp1 05/18 00:00 BP 153 / 81; Pulse 91; Resp 13; Pulse Ox 100% on R/A; lp1 01:00 BP 153 / 80; Pulse 82; Resp 17; Pulse Ox 100% on R/A; lp1 01:57 BP 154 / 86; Pulse 89; Resp 19; Pulse Ox 100% on R/A; lp1 05/17 22:48 Body Mass Index 29.84 (99.79 kg, 182.88 cm) ca1 MDM: 05/17 22:51 Patient medically screened. endy 05/17 23:16 Order name: Basic Metabolic Panel lp1 05/17 23:16 Order name: CBC with Diff lp1 05/17 23:16 Order name: LFT's lp1 05/17 23:16 Order name: Magnesium lp1 05/17 23:16 Order name: NT PRO-BNP lp1 05/17 23:16 Order name: PT-INR lp1 05/17 23:16 Order name: Troponin (emerg Dept Use Only) lp1 05/17 23:46 Order name: CBC with Automated Diff; Complete Time: 00:12 EDMS 05/17 23:46 Order name: Protime (+INR); Complete Time: 00:12 EDMS 05/18 00:21 Order name: Basic Metabolic Panel EDMS 05/18 00:22 Order name: Liver (Hepatic) Function EDMS 05/18 00:22 Order name: Troponin (Emerg Dept Use Only) EDMS 05/18 00:22 Order name: NT PRO-BNP EDMS 05/18 00:22 Order name: Magnesium EDMN 05/17 23:16 Order name: XRAY Chest (1 view) lp1 05/17 23:16 Order name: EKG; Complete Time: 23:18 lp1 05/17 23:16 Order name: Cardiac monitoring; Complete Time: 23:16 [facility] 05/17 23:16 Order name: EKG - Nurse/Tech; Complete Time: 23:16 lp1 05/17 23:16 Order name: IV Saline Lock; Complete Time: 23:44 lp1 05/17 23:16 Order name: Labs collected and sent; Complete Time: 23:44 lp1 05/17 23:16 Order name: O2 Per Protocol; Complete Time: 23:16 lp1 05/17 23:16 Order name: O2 Sat Monitoring; Complete Time: 23:16 lp1 Administered Medications: No medications were administered Disposition: 05/18/19 00:15 Hospitalization ordered by Issa Lopez for Inpatient Admission. Preliminary diagnosis are Unspecified combined systolic (congestive) and diastolic (congestive) heart failure, Cardiomegaly, Orthopnea. - Bed requested for Telemetry/MedSurg (Inpatient). - Status is Inpatient Admission. lp1 - Condition is Fair. - Problem is new. - Symptoms have improved. Signatures: Dispatcher [employer] EDMN Robert Mauro MD MD cha Pena, Laura, RN RN lp1 Yvonne Saldaña RN RN cg Acob, Cheryl, RN RN ca1 Corrections: (The following items were deleted from the chart) 05/18 00:17 00:15 Hospitalization Ordered by Issa Lopez for Inpatient Admission. Preliminary endy diagnosis is Unspecified combined systolic (congestive) and diastolic (congestive) heart failure; Cardiomegaly. Bed requested for Telemetry/MedSurg (Inpatient). Status is Inpatient Admission. Condition is Fair. Problem is new. Symptoms have improved. endy 01:39 00:17 05/18/2019 00:15 Hospitalization Ordered by Issa Lopez for Inpatient cg Admission. Preliminary diagnosis is Unspecified combined systolic (congestive) and diastolic (congestive) heart failure; Cardiomegaly; Orthopnea. Bed requested for Telemetry/MedSurg (Inpatient). Status is Inpatient Admission. Condition is Fair. Problem is new. Symptoms have improved. endy 02:13 01:39 05/18/2019 00:15 Hospitalization Ordered by Issa Lopez for Inpatient lp1 Admission. Preliminary diagnosis is Unspecified combined systolic (congestive) and diastolic (congestive) heart failure; Cardiomegaly; Orthopnea. Bed requested for Telemetry/MedSurg (Inpatient). Status is Inpatient Admission. Condition is Fair. Problem is new. Symptoms have improved. cg
[2019-05-18 00:20] LABS: Bilirubin Direct 0.3 mg/dL (0-0.2); Potassium 3.8 mmol/L (3.5-5.1); Protein, Total 7.5 g/dL (6.4-8.2); Troponin (Emerg Dept Use Only) 0.04 ng/mL (0.0-0.045)
--- NOTE | 2019-05-18 00:57 | P.HP ---
Certification for Inpatient Patient admitted to: Inpatient With expected LOS: >2 Midnights Practitioner: I am a practitioner with admitting privileges, knowledge of patient current condition, hospital course, and medical plan of care. Services: Services provided to patient in accordance with Admission requirements found in Title 42 Section 412.3 of the Code of Federal Regulations Patient History Date of Service: 05/18/19 Reason for admission: Shortness of breath History of Present Illness: 64-year-old gentleman with a history of congestive heart failure and hypertension presented to the ED with a complaint of progressive shortness of breath over the past 1 month, which was much worse yesterday. Patient reports orthopnea and shortness of breath at rest. He went to [place] emergency department and he was supposed to be transferred here for further evaluation. I am told patient declined ambulance transfer, he left [place] ER and came to the ED here by himself. Chest x-ray here demonstrated cardiomegaly , no gross evidence of vascular congestion. EKG demonstrated LVH, occasional PVC and nonspecific ST T wave abnormalities. D-dimer was mildly elevated at [place]. Troponin is negative. He was hospitalized here 2 years ago, diagnosed with congestive heart failure and was supposed to follow with cardiology for outpatient echocardiogram but he failed to follow with Cardiology. He also stopped taking Lasix more than 1 year ago. Patient is admitted for further management of CHF exacerbation Allergies No Known Allergies Allergy (Verified 05/18/19 02:43) Home Medications: Furosemide [Lasix*] 20 mg PO BID 03/20/18 Losartan/Hydrochlorothiazide [Hyzaar 50-12.5 Tablet] 1 each PO DAILY #30 tablet 03/20/18 Testosterone Cypionate [Testone Cik] 1 ml IM Q14D 05/18/19 - Past Medical/Surgical History Diabetic: No -: HTN -: Congestive heart failure - Family History Father -: Heart disease Mother -: Heart disease Father\ -: Diabetes - Social History Smoking Status: Never smoker Alcohol use: No CD- Drugs: No Caffeine use: Yes Review of Systems Other: Except as documented, all other systems reviewed and negative. Physical Examination - Physical Exam General: Alert, In no apparent distress, Oriented x3, Cooperative HEENT: Atraumatic, Normocephalic, PERRLA, Mucous membr. moist/pink, Sclerae nonicteric Neck: Supple, JVD not distended, No Thyromegaly Respiratory: Clear to auscultation bilaterally, Normal air movement Cardiovascular: Normal pulses, Regular rate/rhythm, Normal S1 S2, No murmurs, Edema (2+ bilateral lower extremity pitting edema) Capillary refill: <2 Seconds Gastrointestinal: Normal bowel sounds, Soft and benign, Non-distended, No ascites, No tenderness Musculoskeletal: No erythema Integumentary: No rashes Neurological: Normal speech, Normal strength at 5/5 x4 extr, Cranial nerves 3- 12 intact - Studies Laboratory Data (last 24 hrs) 05/17/19 23:33: PT 14.6 H, INR 1.25 05/17/19 23:33: WBC 6.0, Hgb 14.4, Hct 45.1, Plt Count 151 L 05/17/19 23:33: Sodium 144, Potassium 3.8, BUN 18, Creatinine 1.39 H, Glucose 101, Magnesium 2.0, Total Bilirubin 1.0, AST 59 H, ALT 52, Alkaline Phosphatase 136 H Assessment and Plan - Problems (Diagnosis) (1) Congestive heart failure Onset Date: 03/21/18 Current Visit: No Status: Acute Qualifiers: Heart failure type: unspecified Heart failure chronicity: acute Qualified Code(s): I50.9 - Heart failure, unspecified (2) HTN (hypertension) Onset Date: 03/21/18 Current Visit: No Status: Chronic Qualifiers: Hypertension type: essential hypertension Qualified Code(s): I10 - Essential (primary) hypertension (3) Lower extremity edema Onset Date: 03/21/18 Current Visit: No Status: Acute (4) Elevated d-dimer Current Visit: Yes Status: Acute - Plan Admit to telemetry Trend troponin Treat with IV Lasix Obtain echocardiogram Cardiology consult Pulmonary embolism appeared to be a likely but given elevated D-dimer will check venous Doppler of lower extremities to rule out DVT Monitor serum creatinine and obtain CTA thorax to rule out PE if his creatinine remains stable. Blood pressure control. Will order Amlodipine for now. - Advance Directives Does patient have a Living Will: No Does patient have a Durable POA for Healthcare: No
[2019-05-18] MEDS ORDERED: ALBUTEROL 2.5 MG/3 ML NEB SOL NEB PRN (02:24)
[2019-05-18 02:44] VITALS: BMI 26.2
[2019-05-18 03:37] LABS: Troponin I 0.08 ng/mL (0.0-0.045)
[2019-05-18 04:41] LABS: Phosphorus 2.5 mg/dL (2.5-4.9); Potassium 4.1 mmol/L (3.5-5.1)
[2019-05-18] MEDS: POTASS/SODIUM PHOSPHATE 1 PKT POWD.PACK PO SCH ×3 (06:35→11:28)
--- NOTE | 2019-05-18 08:37 | RAD REPORT ---
EXAM DESCRIPTION: RAD - Chest Single View - 05/17/2019 11:42 pm CLINICAL HISTORY: SOB COMPARISON: Chest Single View dated 03/19/2018; Chest Pa And Lat (2 Views) dated 08/05/2015 TECHNIQUE: AP portable chest image was obtained 05/17/2019 11:42 pm . FINDINGS: No focal mass or consolidation. Lung markings and vasculature are similar to the February 2018 study. Cardiomegaly is similar to comparison. Cardiomegaly partially obscures the left lung base . Small left pleural effusion cannot be excluded. Left costophrenic angle is better aerated than on t he comparison. No acute bony abnormality seen. No acute aortic findings suspected. IMPRESSION: Cardiomegaly is similar to prior imaging. Vasculature and lung markings are similar to comparison. Minimal failure or volume overload not exclu ded.
[2019-05-18] MEDS: AMLODIPINE 5 MG TAB PO SCH (09:51)
[2019-05-18] MEDS: ENOXAPARIN 40 MG/0.4 ML SQ SCH (09:52)
[2019-05-18] MEDS: ASPIRIN EC 81 MG TAB PO SCH (09:52)
[2019-05-18] MEDS: FUROSEMIDE 40 MG/4 ML VIAL IV SCH ×2 (09:52→17:00)
[2019-05-18] MEDS ORDERED: INFLUENZA VACCINE (for 3y+) 0.5 ML DOSE IMVAC ONE (11:00)
[2019-05-18] MEDS ORDERED: PNEUMOCOCCAL VACCINE 0.5 ML IMVAC ONE (11:00)
--- NOTE | 2019-05-18 12:23 | P.PN ---
Subjective Date of Service: 05/18/19 Chief Complaint: Shortness of breath Subjective: No new changes, Improving Review of Systems 10-point ROS is otherwise unremarkable Physical Examination - Vital Signs Temperature: 98.5 F Blood Pressure: 161/96 Pulse: 80 Respirations: 20 Pulse Ox (%): 100 - Physical Exam General: Alert, In no apparent distress HEENT: Atraumatic, Normocephalic Neck: Supple Respiratory: Clear to auscultation bilaterally Cardiovascular: Regular rate/rhythm, Edema Capillary refill: <2 Seconds Gastrointestinal: Soft and benign, W/out hepatosplenomegaly Musculoskeletal: No clubbing, Swelling Integumentary: No rashes Neurological: Normal speech, Normal strength at 5/5 x4 extr Lymphatics: No axilla or inguinal lymphadenopathy External genitalia: Deferred Rectal: Deferred - Studies Laboratory Data (last 24 hrs) 05/17/19 23:33: PT 14.6 H, INR 1.25 05/17/19 23:33: WBC 6.0, Hgb 14.4, Hct 45.1, Plt Count 151 L 05/17/19 23:33: Sodium 144, Potassium 3.8, BUN 18, Creatinine 1.39 H, Glucose 101, Magnesium 2.0, Total Bilirubin 1.0, AST 59 H, ALT 52, Alkaline Phosphatase 136 H Assessment & Plan - Problems (Diagnosis) (1) Elevated d-dimer Current Visit: Yes Status: Acute (2) Congestive heart failure Onset Date: 03/21/18 Current Visit: No Status: Acute Qualifiers: Heart failure type: unspecified Heart failure chronicity: acute Qualified Code(s): I50.9 - Heart failure, unspecified (3) Lower extremity edema Onset Date: 03/21/18 Current Visit: No Status: Acute (4) HTN (hypertension) Onset Date: 03/21/18 Current Visit: No Status: Chronic Plan: Admit to telemetry Trend troponin Aggressive diuresis that IV Lasix echocardiogram pending Cardiology consult Pulmonary embolism appeared to be a likely but given elevated D-dimer will check venous Doppler of lower extremities to rule out DVT Monitor serum creatinine and obtain CTA thorax to rule out PE if his creatinine remains stable. Blood pressure control. Will order Amlodipine for now. Awaiting further recommendations from cardiology and echocardiogram Antihypertensives titrated Advance Directive full code Qualifiers: Hypertension type: essential hypertension Qualified Code(s): I10 - Essential (primary) hypertension Time Spent Managing Pts Care (In Minutes): 42
--- NOTE | 2019-05-18 17:25 | RAD REPORT ---
EXAM DESCRIPTION: CT - Chest For Pe Angio - 05/18/2019 5:01 pm CLINICAL HISTORY: PE protocol COMPARISON: Chest Single View dated 05/17/2019 TECHNIQUE: Dynamically enhanced 3 mm thick images of the chest were obtained during administration o f approximately 150mL Isovue 370 IV contrast. Coronal and oblique MIP reconstruction images were gene rated and reviewed. Exam utilizes a protocol to evaluate the pulmonary arterial tree. All CT scans are performed using dose optimization technique as appropriate and may include automated exposure control or mA/KV adjustment according to patient size. FINDINGS: No pulmonary emboli are identified. The aorta as imaged shows no acute or suspicious finding. Cardiomegaly is present without pericardial effusion. No focal mass or consolidation. Interstitial opacity present throughout both lung restrepo. Small bilat eral pleural effusions are present. No mediastinal or hilar suspicious masses. No chest wall masses or abnormal axillary lymphadenopathy. IMPRESSION: No pulmonary emboli identified. Cardiomegaly with small bilateral pleural effusions. Interstitial opacities appear prominent and kendrick elation can be made with any mild CHF or volume overload.
--- NOTE | 2019-05-18 19:52 | RAD REPORT ---
EXAM DESCRIPTION: US - Extrem Venous W Compress [place] - 05/18/2019 7:11 pm CLINICAL HISTORY: Elevated D-dimer, B/L lower extremities swelling COMPARISON: None. TECHNIQUE: Real-time sonographic evaluation of the bilateral lower extremity common femoral, superfi cial femoral, popliteal and posterior tibial veins was performed. FINDINGS: Normal compressibility, flow augmentation, phasic flow and spontaneous flow are identified in the left and right lower extremity common femoral, superficial femoral, popliteal and posterior t ibial veins. No intraluminal filling defects seen. IMPRESSION: No DVT in either lower extremity.
[2019-05-18] MEDS ORDERED: TRAMADOL HCL 50 MG TAB PO PRN (21:57)
[2019-05-19 05:47] LABS: Absolute Lymphocytes (CBC) 1.8 K/uL (0.7-4.9); Basophils % 0.6 % (0-1.3); Hematocrit 41.8 % (39.6-49.0); Lymphocytes % 37.1 % (15.3-44.8); MPV 9.6 fL (7.6-11.3); RBC Red Blood Cell Count 4.81 M/uL (4.33-5.43)
[2019-05-19 07:06] LABS: Phosphorus 3.2 mg/dL (2.5-4.9); Potassium 3.5 mmol/L (3.5-5.1)
--- NOTE | 2019-05-19 07:47 | EKG ---
Test Date: 2019-05-17 Test Time: 23:09:48 Psychiatric Nurse Practitioner: CLAUDIA MEASUREMENT RESULTS: Intervals: Rate: 99 TN: 184 QRSD: 106 QT: 372 QTc: 477 [place]: P: 66 TN: 184 QRS: 23 T: 193 INTERPRETIVE STATEMENTS: Sinus rhythm with occasional premature ventricular complexes Possible Left atrial enlargement Left ventricular hypertrophy with repolarization abnormality Cannot rule out Inferior infarct, age undetermined Abnormal ECG Compared to ECG 03/19/2018 20:53:06 Ventricular premature complex(es) now present Left ventricular hypertrophy now present Early repolarization now present Myocardial infarct finding now present T-wave abnormality no longer present Electronically Signed On 05-19-19 07:45:14 SEISMOLOGY TECHNICAL OFFICER by Jesus Alberto Rosenbaum
--- NOTE | 2019-05-19 08:27 | PN ---
Date of Progress Note: 05/19/2019 Subjective: Mr. Chavarria was admitted on 05/18/2019 with acute on chronic diastolic congestive heart f ailure, elevated troponin. He has improved on IV Lasix. O2 saturation on room air is 100% today and he remains in sinus rhythm. He has no specific complaint. Mr. Chavarria is to go home on Lasix p.o. d aily, losartan 50 mg daily, metoprolol 25 mg 1 p.o. b.i.d. He needs to watch his weight, watch his s alt intake, watch his fluid intake. I will schedule for an outpatient Lexiscan and he will see me so on. TAD/MERARY Voice ID: [id number] Report ID: [id number]
[2019-05-19] MEDS: AMLODIPINE 5 MG TAB PO SCH (08:31)
[2019-05-19] MEDS: ENOXAPARIN 40 MG/0.4 ML SQ SCH (08:31)
[2019-05-19] MEDS: ASPIRIN EC 81 MG TAB PO SCH (08:31)
[2019-05-19] MEDS: FUROSEMIDE 40 MG/4 ML VIAL IV SCH (08:32)
[2019-05-19] MEDS ORDERED: POTASSIUM CL SA 10 MEQ TAB PO ONE (09:00)
[2019-05-19 09:18] VITALS: O2SAT 98
--- NOTE | 2019-05-19 09:39 | CON ---
Date of Consultation: 05/18/2019 Reason For Consultation: Congestive heart failure. History Of Present Illness: Mr. Chavarria is a 64-year-old black male who has a history of hypertension , chronic renal insufficiency, chronic diastolic congestive heart failure, who came in with shortness of breath, pedal edema, PND, and orthopnea. He was found congestive heart failure by x-ray. Denied any chest pain. Denied any nausea, vomiting, diaphoresis. He denied any syncope or palpitations. Allergies: NONE. Review of Systems: Negative. Social History: Negative. Family History: Noncontributory. Past Medical History: Stated earlier. Physical Examination: General: He was in sinus rhythm. No acute distress. Vital Signs: Blood pressure 161/96. HEENT: Negative. Neck: Supple. No bruit, lymphadenopathy, JVD, or thyromegaly. Chest: Revealed rales at both bases. Cardiac: Revealed regular rhythm and rate with S4 gallops. No murmurs or rubs. Abdomen: Benign. Extremities: Revealed 1+ edema. No clubbing. No cyanosis. Skin: Dry and intact. Neurologic: He was nonfocal. Pulses were present in the dorsalis pedis and posterior tibial bilater ally. Diagnostic Data: His troponin was 0.1. BNP was 8305. Rest of it was normal. EKG showed nonspecific changes. Chest x-ray showed mild congestive heart failure. Impression And Plan: 1.Acute on chronic diastolic congestive heart failure exacerbation. 2.Chronic renal insufficiency. 3.Hypertension. 4.Elevated troponin and BNP consistent with diastolic congestive heart failure. There is another ec hocardiogram pending on Mr. Chavarria for 05/20/2019, if he stays here. For now, he is getting Lasix IV and he has already improved. At home, he takes Norvasc, lisinopril with hydrochlorothiazide in olga tion to Lasix and testosterone injections. I suggested he stop the testosterone injection. I sugges gunjan he switch the losartan HCT to losartan alone. Continue Lasix. Add a low dose beta-niurka and I think he needs to be scheduled for an outpatient stress test in the near future. TAD/MIGUELL Voice ID: [id number] Report ID: [id number]
--- NOTE | 2019-05-19 09:51 | P.DS ---
Admission Date: 05/18/19 Discharge Date: 05/19/19 Disposition: ROUTINE DISCHARGE Discharge Condition: GOOD Reason for Admission: Shortness of breath - Problems (1) Elevated d-dimer Status: Acute (2) Congestive heart failure Onset Date: 03/21/18 Status: Acute Qualifiers: Heart failure type: unspecified Heart failure chronicity: acute Qualified Code(s): I50.9 - Heart failure, unspecified (3) Lower extremity edema Onset Date: 03/21/18 Status: Acute (4) HTN (hypertension) Onset Date: 03/21/18 Status: Chronic Qualifiers: Hypertension type: essential hypertension Qualified Code(s): I10 - Essential (primary) hypertension Brief History of Present Illness: 64-year-old gentleman with a history of congestive heart failure and hypertension presented to the ED with a complaint of progressive shortness of breath over the past 1 month, which was much worse yesterday. Patient reports orthopnea and shortness of breath at rest. He went to [place] emergency department and he was supposed to be transferred here for further evaluation. I am told patient declined ambulance transfer, he left [place] ER and came to the ED here by himself. Chest x-ray here demonstrated cardiomegaly , no gross evidence of vascular congestion. EKG demonstrated LVH, occasional PVC and nonspecific ST T wave abnormalities. D-dimer was mildly elevated at [place]. Troponin is negative. He was hospitalized here 2 years ago, diagnosed with congestive heart failure and was supposed to follow with cardiology for outpatient echocardiogram but he failed to follow with Cardiology. He also stopped taking Lasix more than 1 year ago. Patient is admitted for further management of CHF exacerbation Hospital Course: The patient was admitted and was monitored under telemetry. trended troponin and was started on aggressive diuresis with IV Lasix. Underwent an echocardiogram and cardiology was consulted. Pulmonary embolism ,given elevated D-dimer was escalated by CT scan of chest venous Doppler of lower extremities to rule out DVT was negative Antihypertensives titrated. Cardiology recommended conservative management with outpatient follow up he was started on diuretics along with beta-blockers. It was discussed with him about the need for monitoring his weight and decrease oral fluids He is being discharged home today in a stable condition with advice to follow up with PCP in 1 week and also with Cardiology in 1-2 weeks. Vital Signs/Physical Exam: Temp Pulse Resp BP Pulse Ox 96.8 F 64 18 119/70 99 05/19/19 04:00 05/19/19 04:00 05/19/19 04:00 05/19/19 04:00 05/19/19 04:00 General: Alert, In no apparent distress HEENT: Atraumatic, Normocephalic Neck: Supple Respiratory: Clear to auscultation bilaterally Cardiovascular: Regular rate/rhythm Capillary refill: <2 Seconds Gastrointestinal: Soft and benign Neurological: Normal speech, Normal strength at 5/5 x4 extr Lymphatics: No axilla or inguinal lymphadenopathy Laboratory Data at Discharge: WBC 5.0 K/uL (4.3-10.9) D 05/19/19 05:24 Hgb 13.3 g/dL (13.6-17.9) L 05/19/19 05:24 Hct 41.8 % (39.6-49.0) 05/19/19 05:24 Plt Count 113 K/uL (152-406) L D 05/19/19 05:24 PT 14.6 SECONDS (9.5-12.5) H 05/17/19 23:33 INR 1.25 05/17/19 23:33 Sodium 144 mmol/L (136-145) 05/19/19 05:24 Potassium 3.5 mmol/L (3.5-5.1) 05/19/19 05:24 BUN 15 mg/dL (7-18) 05/19/19 05:24 Creatinine 1.38 mg/dL (0.55-1.3) H 05/19/19 05:24 Glucose 83 mg/dL (74-106) 05/19/19 05:24 Phosphorus 3.2 mg/dL (2.5-4.9) 05/19/19 05:24 Magnesium 2.0 mg/dL (1.8-2.4) 05/17/19 23:33 Total Bilirubin 1.0 mg/dL (0.2-1.0) 05/17/19 23:33 AST 59 U/L (15-37) H 05/17/19 23:33 ALT 52 U/L (12-78) 05/17/19 23:33 Alkaline Phosphatase 136 U/L (45-117) H 05/17/19 23:33 Troponin I 0.09 ng/mL (0.0-0.045) H 05/18/19 15:40 Triglycerides 70 mg/dL (<150) 05/19/19 05:24 Cholesterol 104 mg/dL (<200) 05/19/19 05:24 HDL Cholesterol 34 mg/dL (40-60) L 05/19/19 05:24 Cholesterol/HDL Ratio 3.06 05/19/19 05:24 Home Medications: Losartan/Hydrochlorothiazide [Hyzaar 50-12.5 Tablet] 1 each PO DAILY #30 tablet 03/20/18 Testosterone Cypionate [Testone Cik] 1 ml IM Q14D 05/18/19 Aspirin [Aspirin EC 81 MG] 81 mg PO DAILY #30 tablet. 05/19/19 Furosemide [Lasix] 40 mg PO BIDL #60 tab 05/19/19 Metoprolol Tartrate 25 mg PO BID #60 tablet 05/19/19 New Medications: Aspirin [Aspirin EC 81 MG] 81 mg PO DAILY #30 tablet. Furosemide [Lasix] 40 mg PO BIDL #60 tab Metoprolol Tartrate 25 mg PO BID #60 tablet Diet: AHA Activity: Ad clint Followup: Jesus Alberto Rosenbaum MD [ACTIVE - CAN ADMIT] - 1-2 Weeks (windows application developer- call to schedule an appointment ) Álvaro Palma DO, DO [Primary Care Provider] - 1 Week (primary care provider- call to schedule an appointment ) Time spent managing pt's care (in minutes): 39
[2019-05-19 10:18] VITALS: BP 131/74; TEMP 98.1
[2019-05-19] MEDS ORDERED: PNEUMOCOCCAL VACCINE 0.5 ML IMVAC ONE (11:00)
[2019-05-19] MEDS ORDERED: INFLUENZA VACCINE (for 3y+) 0.5 ML DOSE IMVAC ONE (11:00)
== END 2019-05-19 12:47 | disposition home or self-care (01) ==
LOC: ER 22:34 → INTOOBSV 05-18 01:37 → ERHOLD 05-18 01:37 → 4TH 05-18 02:04
PROVIDERS: ADMIT Family Medicine; ATTEND Family Medicine
DX: I50.33 Acute on chronic diastolic (congestive) heart failure (principal); I13.0 Hypertensive heart and chronic kidney disease with heart failure and stage 1 through stage 4 chronic kidney disease, or unspecified chronic kidney disease; N18.9 Chronic kidney disease, unspecified; Z23 Encounter for immunization
CPT/HCPCS: 93005; 85025 ×2; 80048 ×3; 36415 ×2; 83735; 84100 ×2; 85610; 80061; 80076; 84484 ×5; 83880; 71275; 71045; 90471 ×2; 93970; 90670; 99285; Q9967; J1940 ×3; Q2035; J1650 ×2; G0378 ×3

== ENCOUNTER 2019-09-02 08:48 | Emergency (ER) | payer OTHER ==
[2019-09-02] MEDS ORDERED: EPINEPHrine 1 MG/10 ML SYR IV ONE (08:49)
[2019-09-02] MEDS ORDERED: NA CHLORIDE 0.9% 1,000 ML IV ONE (08:49)
[2019-09-02 09:08] LABS: Absolute Lymphocytes (CBC) 2.8 K/uL (0.7-4.9); Basophils % 0.5 % (0-1.3); Lymphocytes % 80.5 % (15.3-44.8); MPV 10.6 fL (7.6-11.3); Protime INR 1.25; RBC Red Blood Cell Count 4.11 M/uL (4.33-5.43)
[2019-09-02 09:22] LABS: ALT/SGPT 197 U/L (12-78); AST/SGOT 250 U/L (15-37); Albumin 2.7 g/dL (3.4-5.0); Alkaline Phosphatase 113 U/L (45-117); BUN Blood Urea Nitrogen 21 mg/dL (7-18); Bicarbonate 21 mmol/L (21-32); Bilirubin Direct < 0.1 mg/dL (0-0.2); Bilirubin Total 0.3 mg/dL (0.2-1.0); Glucose Level 284 mg/dL (74-106); Magnesium 2.3 mg/dL (1.8-2.4); NT PRO-BNP 1847 pg/mL (<125); Potassium 2.8 mmol/L (3.5-5.1); Protein, Total 5.8 g/dL (6.4-8.2); Troponin (Emerg Dept Use Only) 1.68 ng/mL (0.0-0.045)
--- NOTE | 2019-09-02 09:24 | ER ---
Nurse's Notes [facility] Name: John Paul Chavarria Age: 64 yrs Sex: Male : 1955 Arrival Date: 09/02/2019 Time: 08:51 Bed 3 Private MD: Diagnosis: Cardiopulmonary arrest Presentation: 09/01 08:45 Chief complaint: EMS states: [facility]: PT FOUND UNRESPONSIVE AND IN FULL ARREST BY bp COWORKER, UNKNOWN DOWNTIME. CPR STARTED BY PD AT 0805, EMS TOOK OVER AT 0820, ASYSTOLE ON MONITOR. ETT 8.0 AT 25CM AND LEFT 20 G PIV ESTABLISHED. PT GIVEN EPI x5, BICARB x1 EN ROUTE BY EMS. CPR BY THUMPER. 08:45 Coronavirus screen: Proceed with normal triage. Ebola Screen: No symptoms or risks bp identified at this time. Initial Sepsis Screen: Does the patient meet any 2 criteria? No. Patient's initial sepsis screen is negative. Does the patient have a suspected source of infection? No. Patient's initial sepsis screen is negative. Risk Assessment: Do you want to hurt yourself or someone else? Patient reports no desire to harm self or others. Note PT PUPILS FIXED/DILATED AND ASYSTOLE ON MONITOR ON ARRIVAL. Onset of symptoms is unknown. Care prior to arrival: Oral intubation, Medication(s) given: EPI x5, BICARB X1 IV initiated. 20 GA, in the left antecubital area, Oxygen administered. via AMBU bag. 08:45 Method Of Arrival: EMS: [facility] bp 08:45 Acuity: MACK 1 bp 08:45 Compressions began prior to arrival. bp Historical: - Allergies: 08:45 No Known Allergies; bp - Home Meds: 08:45 Lasix Oral [Active]; Metoprolol Tartrate Oral [Active]; bp - PMHx: 08:45 Arthritis; CHF; Hypertension; kidney disease; bp Screenin:45 Abuse screen: Denies threats or abuse. Denies injuries from another. Nutritional bp screening: No deficits noted. Tuberculosis screening: No symptoms or risk factors identified. Assessment: 08:45 CPR assessment: unresponsive, pupils fixed \T\ dilated, no respiratory effort, intubated, bp Ambu ventilation, pulses present w/ compressions. Cardiac rhythm is asystole. 08:49 Cardiac rhythm is asystole. General: EPI x1. bp 08:50 CPR assessment: Ambu ventilation, pulses present w/ compressions. General: BICARB x1. bp 08:51 Cardiac rhythm is asystole. General: BICARB x2. bp 08:52 CPR assessment: pupils fixed \T\ dilated, pulses present w/ compressions. bp 08:53 Cardiac rhythm is asystole. General: BGL 230, 20 R AC. bp 08:54 Cardiac rhythm is asystole. General: EPI x1. bp 08:55 CPR assessment: unresponsive, pupils fixed \T\ dilated, Ambu ventilation, pulses present bp w/ compressions. 08:56 CPR assessment: pupils fixed \T\ dilated. Cardiac rhythm is asystole. General: TIME OF bp . 09:00 Reassessment: WORK KEYS TO OFFICER REJI. bp 09:28 Reassessment: [employer]: YAN SEPULVEDA [id number], POSSIBLE DONOR. bp 11:24 Reassessment: POLICE CONTACTED [facility] [place]. FUNERARY bp TRANSPORT PENDING. 12:11 Reassessment: FUNERARY TRANSPORT AT B/S. PT RICHARD WITH TRANSPORT. bp Vital Signs: 08:45 Temp 97.9; Weight 99.79 kg; bp ED Course: 00:45 Patient has correct armband on for positive identification. Placed in gown. Bed in low bp position. Side rails up X2. satellite project site monitor on. Pulse ox on. NIBP on. 08:51 Patient arrived in ED. em1 08:53 Patient has correct armband on for positive identification. Placed in gown. Bed in low bp position. Side rails up X2. Inserted saline lock: 20 gauge in right antecubital area, using aseptic technique. Maintain EMS IV. Dressing intact. Good blood return noted. Site clean \T\ dry. Gauge \T\ site: 20 GAUGE LEFT AC. 08:58 Swapnil Jay MD is Attending Physician. kdr 09:04 Nestor Galicia, JONATHAN is Primary Nurse. bp 09:08 Triage completed. bp 09:24 Swapnil Jay MD is Pronouncing Provider. kdr Administered Medications: No medications were administered Outcome: 09:00 Outcome Patient bp 09:00 Patient : Time of 08:56 Pronounced by Swapnil Jay MD 09:00 Condition: 12:17 Patient left the ED. bp Signatures: Swapnil Jay MD MD [facility] Brando Miller 1 Nestor Galicia, RN RN bp
[2019-09-02 09:25] LABS: Sodium Level 146 mmol/L (136-145)
--- NOTE | 2019-09-02 09:25 | EDPHYS ---
Physician Documentation [facility] Name: John Paul Chavarria Age: 64 yrs Sex: Male : 1955 Arrival Date: 09/02/2019 Time: 08:51 Bed 3 Private MD: ED Physician Swapnil Jay HPI: 09/01 09:00 This 64 yrs old Black Male presents to ER via Unassigned with complaints of Found down kdr at work. 09:00 Preceding the arrest, the patient collapsed, was found down by bystander. The arrest kdr occurred at work. Pre-hospital course: The arrest was not witnessed by others. Bystanders at the scene performed CPR. EMS care prior to arrival: initiation of ACLS, peripheral IV, was successfully placed. intubation was successfully performed, oxygen, 100% by ET tube. EMS on scene time was 45 minutes were spent at scene. 10 minutes elapsed prior to ACLS. ACLS has been in progress for 50 minutes. ACLS details: Initial rhythm was asystole. The presenting rhythm is asystole. Airway: oral intubation, Medications given by EMS prior to arrival - Epinephrine IV x 5 doses, Bicarb. The patient has not experienced similar symptoms in the past. It is unknown whether or not the patient has recently seen a physician. Historical: - Allergies: 08:45 No Known Allergies; bp - Home Meds: 08:45 Lasix Oral [Active]; Metoprolol Tartrate Oral [Active]; bp - PMHx: 08:45 Arthritis; CHF; Hypertension; kidney disease; bp ROS: 09:00 Constitutional: Unobtainable secondary to unresponsive kdr 09:00 Unable to obtain ROS due to patient is on ventilator. Exam: 09:00 Constitutional: This is a well developed, well nourished patient who is awake, alert, kdr and in no acute distress. Head/Face: Normocephalic, atraumatic. ENT: Nares patent. No nasal discharge, no septal abnormalities noted. Tympanic membranes are normal and external auditory canals are clear. Oropharynx with no redness, swelling, or masses, exudates, or evidence of obstruction, uvula midline. Mucous membranes moist. Neck: Trachea midline, no thyromegaly or masses palpated, and no cervical lymphadenopathy. Supple, full range of motion without nuchal rigidity, or vertebral point tenderness. No Meningismus. Chest/axilla: Normal chest wall appearance and motion. Nontender with no deformity. No lesions are appreciated. Abdomen/GI: Soft, non-tender, with normal bowel sounds. No distension or tympany. No guarding or rebound. No evidence of tenderness throughout. Back: No spinal tenderness. No costovertebral tenderness. Full range of motion. Skin: Warm, dry with normal turgor. Normal color with no rashes, no lesions, and no evidence of cellulitis. 09:00 Cardiovascular: Rate: Asystole, Rhythm: asystole, Pulses: not palpable, Heart sounds: Not heard, Edema: JVD: is not appreciated, Bilateral blood pressure: not indicated. Vital Signs: 08:45 Temp 97.9; Weight 99.79 kg; bp MDM: 09:00 Data reviewed: vital signs, nurses notes, EMS record. ED course: Two rounds of ACLS kdr medications were given without any change in his presenting rhythm. Pronounced at 0856. 09:24 Patient medically screened. kdr 09/01 08:58 Order name: Basic Metabolic Panel [facility] / 08:58 Order name: CBC with Diff [facility] / 08:58 Order name: LFT's [facility] / 08:58 Order name: Magnesium [facility] / 08:58 Order name: NT PRO-BNP [facility] /08 08:58 Order name: PT-INR [facility] / 08:58 Order name: Troponin (emerg Dept Use Only) [facility] / 08:58 Order name: EKG; Complete Time: 09:01 3 / 08:58 Order name: Cardiac monitoring; Complete Time: 08:59 3 /08 09:06 Order name: Glucose, Ancillary Testing [facility] 09/01 09:08 Order name: Glucose, Ancillary Testing [facility] / 11:41 Order name: Manual Differential [facility] / 08:58 Order name: IV Saline Lock; Complete Time: 08:58 3 / 08:58 Order name: Labs collected and sent; Complete Time: 08:59 3 09/01 08:58 Order name: O2 Per Protocol; Complete Time: 08:59 3 09/01 08:58 Order name: O2 Sat Monitoring; Complete Time: 08:59 3 Administered Medications: No medications were administered Disposition: 09:12 . kdr Disposition: Patient pronounced on 09/02/19 08:56 by Swapnil Jay. Impression: Cardiopulmonary arrest. - Released to Addiction Counselor. Signatures: Dispatcher [employer] [facility] Swapnil Jay, MD VU[facility] Sheila Abarca [facility] Nestor Galicia, RN RN bp Corrections: (The following items were deleted from the chart) 09:09 09:01 Chest Single View+[id number] ordered. [facility] 12:17 09:24 09/02/2019 09:24 Patient pronounced on 09/02/2019 at 08:56 by Swapnil Jay. bp Impression: Cardiopulmonary arrest. Released to Addiction Counselor. kdr
[2019-09-02 11:42] LABS: Anisocytosis 1+; Blood Morphology Comment NOTED (NOT SEEN); Ovalocytes 1+; Platelet Estimate DECR
== END 2019-09-02 12:17 ==
LOC: ER 08:48
PROC: 5A02216 Assistance with Cardiac Output using Other Pump, Continuous (ICD-10-PCS; principal; 2019-09-02)
DX: I46.9 Cardiac arrest, cause unspecified (principal); I10 Essential (primary) hypertension; I50.9 Heart failure, unspecified; N28.9 Disorder of kidney and ureter, unspecified
CPT/HCPCS: 85025; 80048; 36415; 83735; 85610; 82947; 80076; 84484; 83880; 92950; 99285; J0171; J7030; 93005